=== PATIENT | male | born 1975 | race Caucasian/White ===

== ENCOUNTER 2021-01-27 06:01 | Emergency (ER) | payer OTHER ==
[~2021-01-27] VITALS: Ht 180.3 cm; Wt 89.5 kg
[2021-01-27 06:41] LABS: BASO % 0.2 % (0.0-2.0); GRAN # 11.7 K/mm3 (1.4-6.5); GRAN % 84.9 % (42.2-75.2); HEMATOCRIT 29.2 % (42.0-52.0); LYMPH # 0.8 K/mm3 (1.2-3.4); LYMPH % 5.8 % (20.0-51.0); MEAN CELL VOLUME 90 fl (80.0-100.0); MEAN CORPUSCULAR HEMOGLOBIN 31 pg (27.0-31.0); MEAN CORPUSCULAR HGB CONC 34 g/dl (33.0-37.0); MEAN PLATELET VOLUME 9.5 fl (7.4-10.4); MONO # 1.2 K/mm3 (0.1-0.6); MONO % 8.4 % (1.7-9.3); PLATELET COUNT 258 K/mm3 (130-400); RED BLOOD COUNT 3.25 M/mm3 (4.20-5.60); REDCELL DISTRIBUTION WIDTH-CV 11.2 % (11.5-14.5)
[2021-01-27 06:49] LABS: INR 1.1 (0.8-3.0); PROTHROMBIN TIME 12.5 SECONDS (9.7-12.8)
[2021-01-27 06:51] LABS: PARTIAL THROMBOPLASTIN TIME 23.6 SECONDS (26.0-37.0)
[2021-01-27 07:01] LABS: ALBUMIN 3.8 gm/dL (3.5-5.0); BILIRUBIN,TOTAL 1.4 mg/dL (0.2-1.2); CALCIUM 9.2 mg/dL (8.4-10.2); CREATININE, serum 1.26 mg/dL (0.72-1.25); POTASSIUM 4.8 mmol/L (3.5-4.5); TOTAL PROTEIN 6.4 gm/dL (6.2-8.1)
[2021-01-27 08:05] VITALS: BP 108/70; PULSE 71; TEMP 97.1
[2021-01-27 08:07] VITALS: BP 108/70; PULSE 71; TEMP 97.1
[2021-01-27 08:31] VITALS: BP 105/67; PULSE 79
== END 2021-01-27 08:31 | disposition short-term general hospital (02) ==
LOC: COL.ER 06:01
PROVIDERS: Student in an Organized Health Care Education/Training Program
DX: S37.032A Laceration of left kidney, unspecified degree, initial encounter (principal); E87.2 Acidosis; D64.9 Anemia, unspecified; I10 Essential (primary) hypertension; V28.4XXA Motorcycle driver injured in noncollision transport accident in traffic accident, initial encounter
CPT/HCPCS: J2405; J3010; J7030; P9016; Q9967